=== PATIENT | female | born 1975 | race Asian ===

== ENCOUNTER 2017-08-17 10:11 | Inpatient (IN) | payer SELFPAY ==
[~2017-08-17] VITALS: Ht 164 cm; Wt 65.3 kg
[2017-08-24] MEDS ORDERED: NALBUPHINE HYDROCHLORIDE 10 MG/ML VIAL IVP PRN (01:20)
[2017-08-24] MEDS ORDERED: PROMETHAZINE 25 MG/ML VIAL IVP PRN (01:20)
[2017-08-24] MEDS ORDERED: CARBOPROST 250 MCG/ML AMP IM PRN (01:20)
[2017-08-24] MEDS ORDERED: OXYTOCIN 10 UNITS/ML VIAL IM SCH (01:20)
[2017-08-24] MEDS ORDERED: METHYLERGONOVINE 0.2 MG/ML AMP IM PRN ×2 (01:20→08:25)
[2017-08-24] MEDS ORDERED: OXYTOCIN 20 UNITS in LACTATED RINGERS 1,000 ML IV SCH (01:45)
[2017-08-24 02:00] VITALS: BP 105/70
[2017-08-24] MEDS: LACTATED RINGERS 1,000 ML IV SCH ×2 (02:05→04:00)
[2017-08-24 02:28] LABS: BASOPHILS # (AUTO) 0.1 K/uL (0.00-0.22); BASOPHILS % (AUTO) 1.2 % (0.0-2.0); EOSINOPHILS # (AUTO) 0.1 K/uL (0-0.4); EOSINOPHILS % (AUTO) 1.3 % (0.0-4.0); HEMOGLOBIN 11.7 g/dL (12.0-16.0); LYMPHOCYTES % (AUTO) 12.2 % (20.5-51.1); MEAN CORPUSCULAR HEMOGLOBIN 28 pg (27-31); MEAN CORPUSCULAR HGB CONC 33 g/dL (33-37); MEAN CORPUSCULAR VOLUME 86 fL (80-94); MONOCYTES # (AUTO) 0.4 K/uL (0.8-1.0); MONOCYTES % (AUTO) 5.1 % (1.7-9.3); NEUTROPHILS # (AUTO) 6.9 K/uL (1.8-7.7); NEUTROPHILS % (AUTO) 80.2 % (42.2-75.2); PLATELET COUNT (AUTO) 118 K/uL (140-450); RED BLOOD CELL COUNT(AUTO) 4.18 MIL/uL (4.20-5.40); RED CELL DISTRIBUTION WIDTH 14.9 % (11.6-13.7); WHITE BLOOD COUNT (AUTO) 8.5 K/uL (4.8-10.8)
[2017-08-24 02:32] LABS: APPEARANCE,URINE CLEAR (CLEAR); BILIRUBIN,URINE NEGATIVE (NEGATIVE); BLOOD, URINE 1+ (NEGATIVE); COLOR,URINE YELLOW (YELLOW); LEUKOCYTE ESTERASE ,URINE NEGATIVE (NEGATIVE); NITRITE, URINE NEGATIVE (NEGATIVE); UGLUCOSE NEGATIVE (NEGATIVE)
[2017-08-24 03:22] LABS: ALBUMIN 2.4 g/dL (3.4-5.0); ANION GAP 12.7 (8-16); CARBON DIOXIDE 23.5 mmol/L (21-32); CREATININE 0.9 mg/dL (0.6-1.3); POTASSIUM 4.2 mmol/L (3.5-5.1); TOTAL BILIRUBIN 0.2 mg/dL (0.0-1.0)
[2017-08-24] MEDS ORDERED: ROPIVACAINE 0.2%/NS PREMIX 250 ML EPI ONE (04:06)
[2017-08-24] MEDS ORDERED: FERR-252 PO (05:33)
[2017-08-24 05:34] LABS: RBC,URINE 0-5 (RARE) /HPF (0-5); WBC,URINE 0-5 (RARE) /HPF (0-5)
[2017-08-24] MEDS ORDERED: MEASLES, MUMPS, AND RUBELLA 1 VIAL SQVAC PRN (08:25)
[2017-08-24] MEDS ORDERED: HYDROcodone/APAP 5/325 MG 1 TAB TAB PO PRN (08:25)
[2017-08-24] MEDS ORDERED: OXYTOCIN 10 UNITS/ML VIAL IM PRN (08:25)
[2017-08-24] MEDS ORDERED: IBUPROFEN 800 MG TAB PO PRN (08:25)
[2017-08-24] MEDS ORDERED: oxyCODONE/APAP 5/325 MG 1 TAB TAB PO PRN (08:25)
[2017-08-24] MEDS ORDERED: TEMAZEPAM 15 MG CAP PO PRN (08:25)
[2017-08-24] MEDS ORDERED: BENZOCAINE/MENTHOL 20%-0.5% 60 GM CAN TP PRN (08:25)
[2017-08-24] MEDS ORDERED: OXYTOCIN 10 UNITS/ML VIAL ONE (08:33)
--- NOTE | 2017-08-24 09:05 | NUR ---
PATIENT HAS BEEN SCREENED AND CATEGORIZED LOW NUTRITION RISK. PATIENT WILL BE SEEN WITHIN 7 DAYS OF ADMISSION. 08/30/[address]
[2017-08-24] MEDS: IBUPROFEN 800 MG TAB PO PRN (17:39)
[2017-08-24] MEDS ORDERED: DOCUSATE SOD/SENNA 50/8.6 MG 1 TAB PO SCH (21:00)
[2017-08-25] MEDS: IBUPROFEN 800 MG TAB PO PRN ×3 (00:47→20:08)
[2017-08-25 06:49] LABS: HEMOGLOBIN 10.1 g/dL (12.0-16.0)
[2017-08-26] MEDS: IBUPROFEN 800 MG TAB PO PRN (06:01)
== END 2017-08-26 13:45 | disposition home or self-care (01) | DRG 775 ==
LOC: MLD 08-24 00:30 → MFCC 08-24 13:38
PROVIDERS: ADMIT Obstetrics & Gynecology; ATTEND Obstetrics & Gynecology
PROC: 10E0XZZ Delivery of Products of Conception, External Approach (ICD-10-PCS; principal; 2017-08-24)
PROC: 10907ZC Drainage of Amniotic Fluid, Therapeutic from Products of Conception, Via Natural or Artificial Opening (ICD-10-PCS; 2017-08-24)
PROC: 0W8NXZZ Division of Female Perineum, External Approach (ICD-10-PCS; 2017-08-24)
PROC: 00HU33Z Insertion of Infusion Device into Spinal Canal, Percutaneous Approach (ICD-10-PCS; 2017-08-24)
DX: O99.12 Other diseases of the blood and blood-forming organs and certain disorders involving the immune mechanism complicating childbirth (principal); D69.6 Thrombocytopenia, unspecified; O89.4 Spinal and epidural anesthesia-induced headache during the puerperium; O09.523 Supervision of elderly multigravida, third trimester; Z3A.40 40 weeks gestation of pregnancy; Z37.0 Single live birth; Z88.0 Allergy status to penicillin; Z82.49 Family history of ischemic heart disease and other diseases of the circulatory system; Z80.9 Family history of malignant neoplasm, unspecified
CPT/HCPCS: 36415; 51702; 59409; 80053; 81001; 85018; 85025; 86592; 86886; 86900; 86901; J2590; J2795; J7120